=== PATIENT | male | born 1960 | race African-American/Black ===

== ENCOUNTER 2018-10-27 09:02 | Observation (INO) | payer MEDICARE ==
[2018-10-27 12:07] VITALS: BMI 29.6
[2018-10-27] MEDS ORDERED: Ondansetron PF 4 MG/2 ML Vial IVP PRN (12:19)
[2018-10-27] MEDS ORDERED: Sodium Chloride 0.9% 1,000 ML IV SCH (12:19)
--- NOTE | 2018-10-27 15:06 | MRI ---
MRI Brain W WO Con: 10/27/2018 12:45 PM CLINICAL HISTORY: Weakness. COMPARISON: None. FINDINGS: Extra axial spaces: Prominent CSF space related to atrophy. Partially empty sella. Acute infarction: None. Ventricular system: Enlarged related to ex vacuo dilatation of right lateral ventricle. Basal cisterns: Normal. Cerebral parenchyma: Microvascular ischemic changes. Moderate-sized region of right MCA territory cav itary encephalomalacia. Midline shift: None. Cerebellum: Normal. Brainstem: Normal. Paranasal sinuses:Scattered mucosal thickening. Intraaxial Enhancement: None Incidental note of right frontal scalp lipoma. IMPRESSION: No acute territorial infarction. Moderate right MCA territory cavitary encephalomalacia, microvascular ischemic disease, and global at rophy.
[2018-10-27] MEDS ORDERED: Bisacodyl 5 MG TAB PO PRN (16:30)
[2018-10-27] MEDS ORDERED: Acetaminophen 325 MG TAB PO PRN (16:30)
[2018-10-27] MEDS ORDERED: hydrALAZINE 20 MG/ML VIAL SLOW IVP PRN (16:30)
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
[2018-10-27] MEDS ORDERED: Potassium Chloride 20 MEQ TAB PO SCH (17:15)
[2018-10-27] MEDS: Meclizine HCl 25 MG TAB PO SCH (17:22)
[2018-10-27] MEDS: Nicotine 21 MG PATCH TD SCH (17:23)
[2018-10-28] MEDS ORDERED: Calcium Carbonate 500 MG ChewTAB PO PRN (02:52)
[2018-10-28] MEDS: Meclizine HCl 25 MG TAB PO SCH ×3 (02:57→17:52)
[2018-10-28] MEDS ORDERED: Ondansetron ODT 4 MG TAB SL PRN (05:08)
[2018-10-28 05:21] LABS: #Basophils 0.1 thou/uL (0.0-0.2); #Eosinphils 0.4 thou/uL (0.0-0.7); #Lymphocytes 4.2 thou/uL (1.20-3.40); #Monocytes 0.9 thou/uL (0.11-0.59); #Neutrophils 4.9 thou/uL (1.40-6.50); %Basophils 0.9 % (0.0-1.0); %Eosinophils 3.8 % (0.0-10.0); %Monocytes 8.8 % (0.0-10.0); %Neutrophils 46.5 % (42.0-75.0); Hemoglobin 15.3 g/dL (14.0-18.0); Mean Corpuscular HGB CONC 34.9 g/dL (32.0-36.0); Mean Corpuscular Hemoglobin 34.3 pg (27.0-31.0); Mean Corpuscular Volume 98.2 fL (78.0-98.0); Mean Platelet Volume 8.8 fL (7.4-10.4); Platelet Count 163 thou/uL (130-400); RBC Distribution Width 11.6 % (11.5-14.5); Red Blood Cell (RBC) Count 4.47 mill/uL (4.70-6.10); White Blood Cell (WBC) Count 10.4 thou/uL (4.8-10.8)
[2018-10-28 05:42] LABS: Anion Gap 13 mmol/L (10-20); BUN (Urea Nitrogen) 14 mg/dL (8.4-25.7); Calc. Creatinine Clearance 124 mL/min (70-130); Calcium 9.4 mg/dL (7.8-10.44); Carbon Dioxide 22 mmol/L (22-29); Cardiac Risk 5.2 (Less than 4.5); Chloride 107 mmol/L (98-107); Cholesterol 129 mg/dl (< 200 Desired); Estimated GFR-MDRD Greater than 90; Glucose 98 mg/dL (70-105); HDL Cholesterol 25 mg/dL (>60 Neg Risk); LDL Cholesterol, Calculated 80 mg/dL; Potassium 3.8 mmol/L (3.5-5.1); Sodium 138 mmol/L (136-145); Triglycerides 122 mg/dL (Less than 150)
[2018-10-28] MEDS ORDERED: Aspirin 325 mg Enteric Coated Tablet PO SCH (09:00)
[2018-10-28] MEDS ORDERED: Lisinopril/Hydrochlorothiazide 20/25 mg Tablet PO SCH (09:00)
[2018-10-28] MEDS ORDERED: Meloxicam 15 MG TAB PO SCH (09:00)
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
[2018-10-28 15:59] VITALS: BP 141/80; TEMP 98.5
[2018-10-28] MEDS: Nicotine 21 MG PATCH TD SCH (16:46)
[2018-10-28] MEDS ORDERED: Carvedilol 6.25 MG TAB PO SCH (17:00)
--- NOTE | 2018-10-28 18:30 | DIS ---
DATE OF ADMISSION: 10/27/2018 DATE OF DISCHARGE: 10/28/2018 PRIMARY CARE PROVIDER: Dr. Elias Escalante. DISCHARGE DIAGNOSES: 1. Vertigo, most likely secondary to inner ear etiology. 2. Hypokalemia. CONDITION OF PATIENT ON THE DAY OF DISCHARGE: Stable. I assessed Mr. Garcia on the day of discharge. He denies any chest pain or shortness of breath. He denies any vertigo. Vital signs are stable, he is bradycardic. S1 and S2 are heard, regular and bradycardic. Lungs are clear to auscultation bilaterally. CONSULTATIONS DURING THIS HOSPITALIZATION: Neurology, Dr. Hobbs. HOSPITAL COURSE: Mr. Garcia is a pleasant 58-year-old gentleman, who was admitted to [facility] on October 27, 2018 on observation status for vertigo. He was started on scheduled meclizine with resolution of his symptoms. He is being discharged home with a prescription for meclizine 25 mg at bedtime as needed and has been advised not to drive or operate heavy machinery while using meclizine. He was also bradycardic during this hospitalization. His Coreg was stopped. He has been started on amlodipine. He has been advised to check his blood pressure and heart rate 3 times a day and show the readings to his primary care provider. He has also been advised to seek ENT referral through primary care provider's office. On the day of discharge, he has a normal chem-7, white count 10,400, hemoglobin 15.3, and platelet count 163,000. Fasting lipid profile showed triglycerides 122, cholesterol 129, LDL cholesterol 80, and HDL cholesterol 25. DISCHARGE MEDICATIONS: 1. Lisinopril/hydrochlorothiazide 20/25 mg one tablet daily. 2. Meloxicam 15 mg daily. 3. Nicoderm 21 mg patch daily. 4. Amlodipine 5 mg daily. 5. Meclizine 25 mg at bedtime as needed. Many thanks for allowing me to participate in Mr. Garcia's care. Please feel free to contact me with any questions or concerns. DISCHARGE DESTINATION: Home. ADDENDUM: Mr. Garcia has a previous history of stroke. That is why he is being discharged on aspirin 81 mg daily and atorvastatin 20 mg at bedtime, in addition to the other medications as dictated on my previous discharge summary. Job ID: [id number]
== END 2018-10-28 17:58 | disposition home or self-care (01) ==
LOC: ERS 09:02 → ERHOLD 09:30 → 2SE 12:33
PROVIDERS: ADMIT Internal Medicine; ATTEND Internal Medicine
DX: R42 Dizziness and giddiness (principal); E87.6 Hypokalemia; E78.5 Hyperlipidemia, unspecified; I10 Essential (primary) hypertension; R00.1 Bradycardia, unspecified; I67.82 Cerebral ischemia; F17.210 Nicotine dependence, cigarettes, uncomplicated; S09.90XA Unspecified injury of head, initial encounter; Z86.73 Personal history of transient ischemic attack (TIA), and cerebral infarction without residual deficits; Z91.040 Latex allergy status; Z79.82 Long term (current) use of aspirin; Z79.1 Long term (current) use of non-steroidal anti-inflammatories (NSAID); Z79.899 Other long term (current) drug therapy; Y00.XXXA Assault by blunt object, initial encounter
CPT/HCPCS: 70553; 80048; 80061; 85025; 90732; 93306; 96360; 96361 ×2; 99284; G0009; G0378 ×2; 36415; 90471; J8499